=== PATIENT | male | born 1975 | race Two or more races ===

== ENCOUNTER 2020-03-15 19:09 | Inpatient (IN) | payer MEDICARE, OTHER ==
[~2020-03-15] VITALS: Ht 167.6 cm; Wt 47.0 kg
[2020-03-15] MEDS ORDERED: SODIUM CHLORIDE 0.9% 1,000 ML IV ONE (21:30)
[2020-03-15 22:21] LABS: Urine Bacteria MANY /hpf (None Seen); Urine Blood 2+ /uL (Negative); Urine Mucus FEW (None Seen); Urine WBC 164 /hpf (0 - 3)
[2020-03-15 22:27] LABS: Partial Thromboplastin Time 29.9 sec (23.64-32.05)
[2020-03-15 22:30] LABS: Albumin 1.9 g/dL (3.4-5.0); Calcium 7.3 mg/dL (8.5-10.1); Potassium 3.8 mmol/L (3.5-5.1)
[2020-03-15 22:33] LABS: Bilirubin, Total 0.4 mg/dL (0.2-1.0); Total Protein 5.9 g/dL (6.4-8.2)
[2020-03-15 22:34] LABS: Hemoglobin 9.5 g/dL (13.5-17.5)
[2020-03-15 22:35] LABS: Hematocrit 28.5 % (41.0-53.0); Mean Corpuscular Hemoglobin 26.5 pg (28.0-32.0); Mean Corpuscular Hgb Conc. 33.3 g/dL (32.0-36.0); Mean Corpuscular Volume 79.7 fL (80.0-100.0); Platelet Count (auto) 78 10^3/uL (140-450); Red Blood Cells 3.57 10^6/uL (4.5-5.90); Red Cell Distribution Width 17.7 % (11.8-14.3); White Blood Cell 3.6 10^3/uL (4.4-10.8)
[2020-03-15 22:44] LABS: Basophils % (manual) 0 (0.0-2.0); Blast Cells 0; Metamyelocytes % 0; Myelocytes % 0; Promyelocytes % 0; Reactive Lymphocytes 0
[2020-03-16 00:03] LABS: Band Neutrophils % (manual) 4; Eosinophils % (manual) 2 (0-7); Lymphocytes % (manual) 8 (10.0-50.0); Monocytes % (manual) 2 (0-12)
[2020-03-16] MEDS ORDERED: PIPERACILLIN-TAZOB 3.375GM 100 ML IV ONE (00:30)
[2020-03-16] MEDS ORDERED: SODIUM CHLORIDE 0.9% 1,000 ML IV SCH (00:38)
[2020-03-16] MEDS ORDERED: NITROGLYCERIN 0.4 MG SL TAB SL PRN (00:45)
[2020-03-16] MEDS ORDERED: ONDANSETRON HCL 4 MG/2 ML VIAL IV PRN (00:45)
[2020-03-16] MEDS ORDERED: ACETAMINOPHEN 325 MG TAB PO PRN (00:45)
[2020-03-16] MEDS ORDERED: MORPHINE SULF INJ 2 MG/ML SYRINGE 1ML IV PRN (00:45)
[2020-03-16 01:12] LABS: CRP High Sensitivity 4.15 mg/dL (< 0.3)
--- NOTE | 2020-03-16 03:10 | NUR ---
Telemetry admit from [facility] admitted to Telemetry unit no SBAR received. Patient oriented to LAURA VELASQUEZ, RN primary RN, unit, room, bed, and unit policies regarding patient care and visiting hours. Patient now on continuous telemetry monitoring,tele box #12. Patient weighed by bedscale and encouraged to call if they need something. Lassiter intact and draining. Safety measures in place side rails up x2, bed in lowest position, and call light within reach. All questions and concerns addressed, patient verbalized understanding.
[2020-03-16 04:51] VITALS: BP 133/81
[2020-03-16 05:00] VITALS: BP 138/87
--- NOTE | 2020-03-16 05:47 | NUR ---
Arvind Hospitalist. Patient complaining of pain 07/05. Patient complaining of generalized body ache. Patient has no pain medication ordered. Patient requesting [place]. Awaiting orders. Will continue to monitor.
[2020-03-16] MEDS: NYSTATIN (MOUTH-THROAT) 500,000 UNITS/5 ML SUSP MT SCH ×4 (06:24→22:34)
[2020-03-16] MEDS ORDERED: PNEUMOCOCCAL VACC POLYS 25 MCG/0.5 ML VIAL IM ONE (07:15)
--- NOTE | 2020-03-16 07:30 | NUR ---
OOB TO CHAIR UNABLE TO GET PATIENT OOB TO CHAIR D/T PAIN, WEAKNESS, AND CACHEXIC STATUS. PATIENT TURNED AND POSITIONED FOR COMFORT. WILL CONTINUE TO MONITOR Addendum: 03/16/20 at 1149 by VA MARTINEZ RN RN Amended: Links added.
--- NOTE | 2020-03-16 07:30 | NUR ---
Opening Shift Note Assumed care of patient, awake, alert, and oriented. No S/S of distress/SOB. Patient c/o pain 6/10, generalized body pain. Patient does not have any pain meds ordered. Will notify MD. Bed in lowest/locked position, bed rails up x2, call light within reach. Instructed on POC and to call for assist PRN. Will continue to monitor for changes Q1hr and PRN.
--- NOTE | 2020-03-16 07:45 | NUR ---
BRIJESH COLEY MD RE: PATIENT PAIN MEDICATION. AWAITING RETURN CALL.
--- NOTE | 2020-03-16 08:20 | NUR ---
MD CALL RECEIVED CALL FROM DR ENRIQUEZ RE: PATIENT PAIN. PER DR ENRIQUEZ, PATIENT IS BEING SEEN BY DR BUENO.
--- NOTE | 2020-03-16 08:40 | NUR ---
BRIJESH COLEY MD RE: PATIENT PAIN MEDICATION. AWAITING RETURN CALL.
[2020-03-16 09:00] VITALS: BP 130/50
[2020-03-16] MEDS ORDERED: cefTRIAXone 1GM/50ML D5W 50 ML IV SCH (09:00)
[2020-03-16] MEDS: ASCORBIC ACID 1,000 MG TAB PO SCH (09:11)
[2020-03-16] MEDS: FAMOTIDINE 20 MG TAB PO SCH ×2 (09:12→22:34)
[2020-03-16] MEDS ORDERED: ZINC SULFATE 220mg CAP or TAB PO SCH (10:00)
[2020-03-16] MEDS ORDERED: CHOLECALCIFEROL (VITD3) 1,000IU=25mCg TAB PO SCH (10:00)
--- NOTE | 2020-03-16 10:45 | NUR ---
MD CALL RECEIVED CALL FROM DR BUENO RE: PATIENT PAIN. NEW ORDERS RECEIVED/ WILL CARRY OUT. WILL CONTINUE TO MONITOR
[2020-03-16] MEDS: HYDROcodone-ACET 5/325MG TAB PO PRN ×3 (11:00→20:50)
--- NOTE | 2020-03-16 11:00 | NUR ---
PAIN PATIENT C/O PAIN GENERALIZED BODY 04/04. WILL MEDICATE PER MD ORDERS
--- NOTE | 2020-03-16 11:21 | NUR ---
AIR MATTRESS: Specialty air mattress ordered at [facility],Reference # [id number]; ETA 03/16/20 @7509, Call [facility] if need to follow up at [phone] Addendum: 03/16/20 at 1122 by Sulema Soriano RN Amended: Links added.
--- NOTE | 2020-03-16 12:03 | NUR ---
OOB TO CHAIR UNABLE TO GET PATIENT OOB TO CHAIR D/T PAIN, WEAKNESS, AND CACHEXIC STATUS. PATIENT TURNED AND POSITIONED FOR COMFORT. WILL CONTINUE TO MONITOR Addendum: 03/16/20 at 1204 by VA MARTINEZ RN RN Amended: Links added.
[2020-03-16 13:00] VITALS: BP 123/82
--- NOTE | 2020-03-16 14:10 | NUR ---
REPORT REPORT GIVEN TO ANA PAULA STANFORD
--- NOTE | 2020-03-16 14:30 | NUR ---
BENTLEY EMPTIED 850 ML CLEAR YELLOW URINE FROM [facility] PRIOR TO TRANSFER
--- NOTE | 2020-03-16 14:40 | NUR ---
TRANSFER PATIENT TRANSFERRED FROM [facility] TO ROOM 231. NO S/S OF DISTRESS, SOB NOTED AT DEPARTURE
--- NOTE | 2020-03-16 15:01 | NUR ---
PATIENT TRANSFERRED TO FLOOR VIA WHEEL CHAIR,AND PLACED ON SPECIAL AIR MATRES. PT STARTED ON ABX AND VA GOSS REPORTS MRSA SWAB WAS SENT TO LAB. VITALS: T 98.2, BP 135/74, HR 93, 02 99 ON RA, RR 16.
[2020-03-16] MEDS: AZTREONAM 1GM INJ 1 GM in D5W 5% 50 ML IV SCH ×3 (15:55→23:52)
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
--- NOTE | 2020-03-16 16:15 | NUR ---
ss consult Per consult patient wants information on advanced directive. Patient has been provided with advanced directive. Addendum: 03/16/20 at 1618 by Zahraa Saeed Amended: Links added.
[2020-03-16 17:00] VITALS: BP 132/81
[2020-03-16] MEDS: Ensure Enlive Strawberry 8oz Bottle PO SCH (18:02)
--- NOTE | 2020-03-16 18:04 | NUR ---
Urine sent to lab for urine culture.
--- NOTE | 2020-03-16 19:20 | NUR ---
Opening Shift Note Assumed care of patient, awake and alert. No S/S of distress/SOB or pain. POC discussed and questions answered. Bed is locked in lowest position with side rails up x2 for safety. Call light is within reach and patient is encouraged to call for assistance as needed, will continue to monitor for changes Q1hr and PRN.
[2020-03-16 22:00] VITALS: BP 134/76
--- NOTE | 2020-03-16 22:10 | NUR ---
WOUND CARE CHANGED DRESSING ON SACRAL PER ORDERS.
[2020-03-16] MEDS: TEMAZEPAM 15 MG CAP PO PRN (22:22)
[2020-03-16] MEDS ORDERED: AZTREONAM 1 GM INJ VIAL ONE (23:35)
[2020-03-17 04:53] VITALS: BP 139/92
[2020-03-17] MEDS: NYSTATIN (MOUTH-THROAT) 500,000 UNITS/5 ML SUSP MT SCH ×4 (05:48→22:03)
[2020-03-17] MEDS: HYDROcodone-ACET 5/325MG TAB PO PRN ×4 (05:48→20:51)
[2020-03-17 06:23] LABS: Hematocrit 33.4 % (41.0-53.0); Hemoglobin 10.3 g/dL (13.5-17.5); Mean Corpuscular Hemoglobin 26.7 pg (28.0-32.0); Mean Corpuscular Hgb Conc. 30.7 g/dL (32.0-36.0); Mean Corpuscular Volume 86.7 fL (80.0-100.0); Platelet Count (auto) 74 10^3/uL (140-450); Red Blood Cells 3.85 10^6/uL (4.5-5.90); Red Cell Distribution Width 18.3 % (11.8-14.3); White Blood Cell 2.5 10^3/uL (4.4-10.8)
--- NOTE | 2020-03-17 06:23 | NUR ---
BLOOD CULTURE PATIENT HAS POSITIVE BLOOD CULTURE , GRAM POSITIVE COCCI IN CLUSTERS. HOSPITALIST PAGED.
[2020-03-17 06:25] LABS: Basophils % (manual) 0 (0.0-2.0); Blast Cells 0; Metamyelocytes % 0; Promyelocytes % 0; Reactive Lymphocytes 0
[2020-03-17 06:27] LABS: Albumin 1.7 g/dL (3.4-5.0); Calcium 7.2 mg/dL (8.5-10.1); Potassium 3.8 mmol/L (3.5-5.1)
[2020-03-17 06:31] LABS: BUN/Creatinine Ratio 32.8; Bilirubin, Total 0.3 mg/dL (0.2-1.0); Total Protein 5.6 g/dL (6.4-8.2)
[2020-03-17] MEDS: AZTREONAM 1GM INJ 1 GM in D5W 5% 50 ML IV SCH ×3 (06:46→22:03)
--- NOTE | 2020-03-17 07:30 | NUR ---
RECEIVED REPORT FROM NIGHT NURSE. PATIENT SLEEPING IN BED. BREATHING EVEN AND UNLABORED. BED IN LOWEST POSITION, SIDE RAILS UP X2, BRAKE ENGAGED. CALL LIGHT IN REACH. WILL CONTINUE TO MONITOR Q 1 HR AND PRN.
[2020-03-17 07:42] LABS: Band Neutrophils % (manual) 3; Eosinophils % (manual) 2 (0-7); Lymphocytes % (manual) 14 (10.0-50.0); Myelocytes % 3
[2020-03-17 07:43] LABS: Monocytes % (manual) 11 (0-12)
[2020-03-17 08:00] VITALS: BP 142/76
[2020-03-17] MEDS: Ensure Enlive Strawberry 8oz Bottle PO SCH ×4 (08:00→18:03)
[2020-03-17] MEDS: FAMOTIDINE 20 MG TAB PO SCH ×2 (10:30→22:04)
[2020-03-17] MEDS: ASCORBIC ACID 1,000 MG TAB PO SCH (10:30)
[2020-03-17 12:00] VITALS: BP 110/65
[2020-03-17] MEDS: CLINDAMYCIN 600MG IV 50 ML IV SCH ×2 (12:27→20:42)
--- NOTE | 2020-03-17 13:29 | NUR ---
Nutrition Assessment Notes Please refer to link for full assessment notes. Est Energy needs: 2714-9573 kcals (30-40 kcal/kgIBW) d/t pt underweight Est Protein needs: 77-97 gms/day (1.2-1.5 gm/kgIBW) d/t pt wounds, underweight Will continue to monitor and reassess prn. Addendum: 03/17/20 at [address] Amended: Links added.
[2020-03-17 16:43] VITALS: BP 125/77
--- NOTE | 2020-03-17 18:23 | NUR ---
IV INSERTION IV INSERTED USING ASEPTIC TECHNIQUE. 22G TO THE LEFT WRIST. PATENT AND FLUSHING. GOOD BLOOD RETURN. PATIENT TOLERATED IT WELL.
--- NOTE | 2020-03-17 18:24 | NUR ---
IV REMOVAL IV REMOVED TO LEFT HAND. CATHETER TIP INTACT, PRESSURE DRESSING APPLIED.
--- NOTE | 2020-03-17 19:30 | NUR ---
Opening Shift Note Assumed care of patient, awake and alert. No S/S of distress/SOB or pain. Instructed on POC and to call for assist PRN. Bed in lowest locked position, call light within reach, side rails up x2, fall precautions in place. Will continue to monitor for changes Q1hr and PRN.
[2020-03-17 22:00] VITALS: BP 127/79
[2020-03-17] MEDS: TEMAZEPAM 15 MG CAP PO PRN (22:04)
[2020-03-18] MEDS: HYDROcodone-ACET 5/325MG TAB PO PRN ×2 (02:52→17:30)
--- NOTE | 2020-03-18 04:45 | NUR ---
IV insertion IV access obtained, via clean sterile technique by inserting 22 gauge catheter at right upper arm after 2 attempt(s). IV secured properly. No trauma to site. Patient tolerated well. NOTE: Previous IV accidently pulled out. Catheter fully intact, pressure dressing was applied.
[2020-03-18] MEDS: CLINDAMYCIN 600MG IV 50 ML IV SCH ×3 (04:59→21:09)
[2020-03-18 05:33] VITALS: BP 128/77
--- NOTE | 2020-03-18 06:00 | NUR ---
Temperature At 100.1. Cooling measures initiated. Will continue to monitor. Addendum: 03/18/20 at 0737 by RADHA COLÓN OCA, RN Temp recheck 99.4.
[2020-03-18] MEDS: NYSTATIN (MOUTH-THROAT) 500,000 UNITS/5 ML SUSP MT SCH ×4 (06:37→21:09)
[2020-03-18] MEDS: AZTREONAM 1GM INJ 1 GM in D5W 5% 50 ML IV SCH (06:37)
--- NOTE | 2020-03-18 08:05 | NUR ---
OPENING SHIFT NOTE Assumed care of patient. PT is awake and alert. No S/S of distress/SOB or pain. Instructed on POC and to call for assist PRN. Bed in lowest locked position, call light within reach, side rails up x2, fall precautions in place. Will continue to monitor for changes Q1hr and PRN.
[2020-03-18 08:48] VITALS: BP 133/75
[2020-03-18] MEDS: Ensure Enlive Strawberry 8oz Bottle PO SCH ×3 (09:30→17:30)
[2020-03-18] MEDS: levoFLOXacin 500MG 100 ML IV SCH (09:30)
[2020-03-18] MEDS: MORPHINE SULF INJ 2 MG/ML SYRINGE 1ML IV PRN ×3 (09:31→21:10)
[2020-03-18] MEDS: FAMOTIDINE 20 MG TAB PO SCH ×2 (09:31→21:10)
[2020-03-18] MEDS: ASCORBIC ACID 1,000 MG TAB PO SCH (09:31)
[2020-03-18 13:00] VITALS: BP 130/74
--- NOTE | 2020-03-18 15:15 | NUR ---
DAILY AND EOD WOUND CARE PERFORMED TO BACK AND SACRAL SITES, PER WOUND CARE INSTRUCTIONS. PT TOLERATED WELL.
[2020-03-18 17:00] VITALS: BP 101/59
--- NOTE | 2020-03-18 19:00 | NUR ---
OPENING NOTE- NOC SHIFT RECEIVED REPORT FROM DAY SHIFT NURSE WILL RN. PATIENT IS COMFORTABLE IN BED. NO S/SX OF DISTRESS OR SOB. WILL CONTINUE TO MONITOR Q1H AND PRN.
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
[2020-03-18 21:55] VITALS: BP 113/72
[2020-03-19] MEDS: MORPHINE SULF INJ 2 MG/ML SYRINGE 1ML IV PRN ×5 (02:06→18:19)
[2020-03-19] MEDS: NYSTATIN (MOUTH-THROAT) 500,000 UNITS/5 ML SUSP MT SCH ×4 (04:55→21:32)
[2020-03-19] MEDS: CLINDAMYCIN 600MG IV 50 ML IV SCH ×3 (04:55→21:32)
--- NOTE | 2020-03-19 04:59 | NUR ---
WOUND CARE TO SACRAL AREA PER MD ORDERS. PATIENT TOLERATED WELL.
[2020-03-19 05:34] VITALS: BP 115/71
--- NOTE | 2020-03-19 07:33 | NUR ---
CLOSING NOTE- NOC SHIFT ENDORSED PATIENT CARE TO DAY SHIFT NURSE SHOBHA GOSS. PATIENT IS COMFORTABLE IN BED. NO S/SX OF DISTRESS, SOB OR PAIN.
[2020-03-19 08:40] VITALS: BP 126/77
--- NOTE | 2020-03-19 08:56 | NUR ---
PT IS REFUSING TO EAT AND TO REPOSITION IN BED, PT IS EDUCATED ON THE IMPORTANCE OF TURNING EVERY 2 HOURS AND EAT BALANCE DIET TO PREVENT FURTHER DEVELOPMENT OF PRESSURE ULCER, PT STILL REFUSED.
[2020-03-19] MEDS: levoFLOXacin 500MG 100 ML IV SCH (09:29)
[2020-03-19] MEDS: ASCORBIC ACID 1,000 MG TAB PO SCH (09:29)
[2020-03-19] MEDS: FAMOTIDINE 20 MG TAB PO SCH ×2 (09:29→21:32)
[2020-03-19] MEDS: Ensure Enlive Strawberry 8oz Bottle PO SCH ×3 (09:30→18:19)
[2020-03-19 13:00] VITALS: BP 107/62
[2020-03-19 16:29] VITALS: BP 109/69
--- NOTE | 2020-03-19 17:24 | NUR ---
PAGED HOSPITALIST RE: PAIN MEDICATION
--- NOTE | 2020-03-19 17:26 | NUR ---
LUCERO CANTU CALLED MADE AWARE PT IS COMPLAINING HE IS ALLERGIC TO NORCO, RECEIVED ORDER TO CHANGE IT TO ULTRAM 50MG PO Q6HRS PRN FOR PAIN AND DC THE NORCO.
--- NOTE | 2020-03-19 18:02 | NUR ---
PT REFUSED ULTRAM FOR PAIN, PER PT ULTRAM DOESN'T WORK FOR HIM.
--- NOTE | 2020-03-19 19:00 | NUR ---
OPENING NOTE- NOC SHIFT PATIENT IS ALERT AND ORIENTED LAYING IN BED EYES CLOSED. BREATHS ARE EVEN AND UNLABORED. NO S/SX OF DISTRESS, SOB OR PAIN. WILL CONTINUE TO MONITOR Q1H AND PRN.
--- NOTE | 2020-03-19 19:45 | NUR ---
MOTHER WES CALLED FOR PATIENT STATUS UPDATE. UPDATED WES WITH POC AFTER CONFIRMING ACCOUNT PASSWORD.
[2020-03-19] MEDS: TEMAZEPAM 15 MG CAP PO PRN (21:33)
[2020-03-19 22:00] VITALS: BP 117/68
--- NOTE | 2020-03-19 22:00 | NUR ---
POOR DINNER INTAKE 25% PATIENT HAS SNACKS AT BEDSIDE PROVIDED BY HIS MOTHER, PATIENT HAS CONSUMED COOKIES, CHOCOLATES AND PASTRIES.
--- NOTE | 2020-03-20 02:10 | NUR ---
PATIENT FOUND TRYING TO GET OUT OF BED. ASSISTED PATIENT BACK INTO BED. PATIENT STATES THAT HE WAS TRYING TO STAND UP. PATIENT IS COMFORTABLE IN BED. LOCKED AT LOWEST POSITION, BED RAILS UP X2, BEDSIDE TABLE WITHIN REACH, CALL LIGHT WITHIN REACH. PERSONAL BELONGINGS WITHIN REACH. INSTRUCTED PATIENT TO STAY IN BED; PATIENT VERBALIZED UNDERSTANDING.
[2020-03-20] MEDS: MORPHINE SULF INJ 2 MG/ML SYRINGE 1ML IV PRN ×6 (02:26→23:19)
[2020-03-20] MEDS: NYSTATIN (MOUTH-THROAT) 500,000 UNITS/5 ML SUSP MT SCH ×4 (05:17→22:24)
[2020-03-20] MEDS: CLINDAMYCIN 600MG IV 50 ML IV SCH (05:17)
[2020-03-20 05:35] VITALS: BP 109/62
[2020-03-20 07:49] LABS: Hemoglobin 8.5 g/dL (13.5-17.5); Red Cell Distribution Width 17.3 % (11.8-14.3)
[2020-03-20 07:53] LABS: Hematocrit 25.4 % (41.0-53.0); Mean Corpuscular Hemoglobin 26.7 pg (28.0-32.0); Mean Corpuscular Hgb Conc. 33.4 g/dL (32.0-36.0); Platelet Count (auto) 127 10^3/uL (140-450); Red Blood Cells 3.18 10^6/uL (4.5-5.90)
[2020-03-20 08:04] LABS: White Blood Cell 1.9 10^3/uL (4.4-10.8)
[2020-03-20 08:05] LABS: Basophils % (manual) 0 (0.0-2.0); Blast Cells 0; Promyelocytes % 0
[2020-03-20 08:10] LABS: BUN/Creatinine Ratio 28.6; Calcium 7.3 mg/dL (8.5-10.1); Potassium 3.8 mmol/L (3.5-5.1)
[2020-03-20 08:22] LABS: Band Neutrophils % (manual) 2; Eosinophils % (manual) 1 (0-7); Lymphocytes % (manual) 23 (10.0-50.0); Metamyelocytes % 1; Monocytes % (manual) 11 (0-12); Myelocytes % 1; Reactive Lymphocytes 1
[2020-03-20 09:13] VITALS: BP 110/71
--- NOTE | 2020-03-20 09:45 | NUR ---
Dr. Betancourt made aware of WBC 1.9, reverse isolation placed.
[2020-03-20] MEDS: Ensure Enlive Strawberry 8oz Bottle PO SCH ×3 (10:33→18:12)
[2020-03-20] MEDS: levoFLOXacin 500MG 100 ML IV SCH (10:33)
[2020-03-20] MEDS: FAMOTIDINE 20 MG TAB PO SCH ×2 (10:34→22:24)
[2020-03-20] MEDS: ASCORBIC ACID 1,000 MG TAB PO SCH (10:34)
[2020-03-20] MEDS: traMADol HCL 50 MG TAB PO PRN ×2 (12:09→18:12)
[2020-03-20 12:41] VITALS: BP 106/75
[2020-03-20] MEDS ORDERED: FILGRASTIM (TBO) 300 MCG/0.5 ML SYRG SC ONE (12:45)
--- NOTE | 2020-03-20 12:46 | NUR ---
Nutrition Followup Notes Wt 47.6 kg Pt po intake is inadequate aeb multiple 50% po intake per RN doc. Pt is HIV pos and stopped taking meds per H/P. per H/P pt is emaciated and possible candidate for hospice. Est Energy needs: 2374-8100 kcals (30-40 kcal/kgIBW) d/t pt underweight Est Protein needs: 77-97 gms/day (1.2-1.5 gm/kgIBW) d/t pt wounds, underweight Will continue to monitor and reassess prn. Labs:Creat 0.56L, Alb 1.7L, Ca 7.3L BM: 1 03/20 per RN doc Skin: BS 14 mod risk, multiple pressure ulcers per RN WC for full details PES: 1) Increased nutrient needs r/t current/chronic medical condition aeb severe hypoalbuminemia, unhealing wounds, BMI of 16.9 kg/m2 2) Altered nutrition related lab values r/t pt with severe protein/calorie malnutrition aeb severe hypoalbuminemia, hyperchloremia, hypocalcemia Comments Will continue to closely monitor pertinent labs, PO intake and skin status prn. Will followup in 3-5 days 1) Continue to closely monitor pt PO intake to meet at least 75% of meals 2) Suggest Ensure High Protein 1 ctn TID 3) Continue current plan of care Expected Outcomes/Goals: Pt appetite to improve Pt to regain weight Pt labs to improve
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
[2020-03-20 14:12] LABS: Albumin 1.9 g/dL (3.4-5.0)
[2020-03-20 14:16] LABS: Pre Albumin 11.9 mg/dL (20.0-40.0)
--- NOTE | 2020-03-20 16:19 | NUR ---
I spoke with Norma in Admitting at [facility], they do not have plastic surgery available. I called [facility] [phone] and spoke with Jennifer in Admitting, she referred me to speak with warehouse engineer about transfer request. I left message for warehouse engineer Alyssa Siddiqui about the transfer request.
--- NOTE | 2020-03-20 16:26 | NUR ---
Faxed transfer request/clinical information to [facility] [phone].
--- NOTE | 2020-03-20 16:36 | NUR ---
I faxed transfer request/clinical information to [facility] and [facility].
[2020-03-20 17:00] VITALS: BP 107/67
--- NOTE | 2020-03-20 19:00 | NUR ---
OPENING NOTE- NOC SHIFT RECEIVED REPORT FROM DAY SHIFT NURSE LIBERTAD GOSS. PATIENT IS IN BED, BED IS LOCKED AT LOWEST POSITION, BED RAILS UP X2 AND HEAD OF BED IS UP >30 DEGREES. BEDSIDE TABLE WITHIN REACH, CALL LIGHT WITHIN REACH. PERSONAL BELONGINGS WITHIN REACH. DISCUSSED POC WITH PATIENT AND INSTRUCTED PATIENT TO CALL PRN; PATIENT VERBALIZED UNDERSTANDING. PATIENT IS ON SPECIALTY MATTRESS. FAMILY SISTER SYBIL RN AT BEDSIDE; UPDATED SYBIL ON PATIENT STATUS AND POC. GOOD FAMILY DYNAMICS NOTED. WILL CONTINUE TO MONITOR Q1H AND PRN.
[2020-03-20 20:00] VITALS: BP 109/62
[2020-03-20 22:00] VITALS: BP 109/62
[2020-03-20] MEDS: TEMAZEPAM 15 MG CAP PO PRN (22:24)
[2020-03-21 05:00] VITALS: BP 109/62
[2020-03-21] MEDS: NYSTATIN (MOUTH-THROAT) 500,000 UNITS/5 ML SUSP MT SCH ×4 (05:02→22:00)
[2020-03-21] MEDS: MORPHINE SULF INJ 2 MG/ML SYRINGE 1ML IV PRN ×5 (05:02→23:57)
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
[2020-03-21 09:00] VITALS: BP 110/67
[2020-03-21] MEDS: FAMOTIDINE 20 MG TAB PO SCH ×2 (09:01→22:00)
[2020-03-21] MEDS: levoFLOXacin 500MG 100 ML IV SCH (09:01)
[2020-03-21] MEDS ORDERED: FILGRASTIM (TBO) 300 MCG/0.5 ML SYRG SC SCH (10:00)
--- NOTE | 2020-03-21 10:09 | NUR ---
I received a message from [facility] letting me know that they do not have plastic surgery available. I called [facility] Transfer Center [phone] and spoke with Lupe, she said they do have plastic surgery available. I provided her with contact information for Dr. Betancourt-faxed requested clinical information.
--- NOTE | 2020-03-21 10:30 | NUR ---
TE RN PICC LINE NURSE AT BED SIDE WITH A MIDLINE AT LEFT UPPER ARM
--- NOTE | 2020-03-21 10:55 | NUR ---
PT TOLERATED MIDLINE WELL AT LEFT UPPER ARM
--- NOTE | 2020-03-21 11:00 | NUR ---
Midline Placement: Patient educated on need for midline placement. All risks and benefits explained and all questions and concerns addresses prior to procedure. 20g/8cm midline inserted via left brachial vein using Ultrasound. Sterile technique utilized. Blood return obtained from lumen and flushed easily with NS using proper technique. Midline secured with saline lock; biodisc and occlusive dressing applied. Primary RN notified. Midline lot #[id number]
[2020-03-21 11:22] LABS: Basophils # (auto) 0 10 ^3/uL (0-0.2); Eosinophils # (auto) 0.1 10 ^3/uL (0-0.8); Eosinophils % (auto) 0.6 % (0.0-7.0); Hematocrit 25.6 % (41.0-53.0); Lymphocytes # (auto) 0.8 10 ^3/uL (0.4-5.4); Mean Corpuscular Hemoglobin 26.5 pg (28.0-32.0); White Blood Cell 16.5 10^3/uL (4.4-10.8)
[2020-03-21 11:23] LABS: Basophils % (auto) 0.3 % (0.0-2.0); Hemoglobin 8.4 g/dL (13.5-17.5); Mean Corpuscular Hgb Conc. 32.6 g/dL (32.0-36.0); Mean Corpuscular Volume 81.3 fL (80.0-100.0); Monocytes # (auto) 2.9 10 ^3/uL (0-1.3); Monocytes % (auto) 17.7 % (0.0-12.0); Neutrophils # (auto) 12.7 10 ^3/uL (1.6-8.6); Neutrophils % (auto) 76.4 % (37.0-80.0); Platelet Count (auto) 122 10^3/uL (140-450); Red Blood Cells 3.15 10^6/uL (4.5-5.90); Red Cell Distribution Width 17.7 % (11.8-14.3)
--- NOTE | 2020-03-21 11:39 | NUR ---
PHYSICAL THERAPY LAURENCE AT BED SIDE ASSISTING PT TO GET OUT OF BED, PT START TO FEEL ACHING PAIN FROM THE PHYSICAL THERAPY HANDS IN ATTEMPT TO GET OUT OF BED, PT STATED NOT NOW PLEASE, I AM IN PAIN >
--- NOTE | 2020-03-21 11:39 | NUR ---
Figueroa catheter dc'd Order to discontinue figueroa catheter. Figueroa dc'd with clean technique following deflation of balloon. Patient tolerated well with no complaints of pain. Continue care.
--- NOTE | 2020-03-21 11:45 | NUR ---
HIGH WBC DR BUENO MADE AWARE OF THE WBC CRITICAL RESULTS
[2020-03-21] MEDS: Ensure Enlive Strawberry 8oz Bottle PO SCH ×3 (11:57→18:17)
[2020-03-21] MEDS ORDERED: ASCORBIC ACID 500 MG TAB PO ONE (12:45)
[2020-03-21 13:00] VITALS: BP 95/54
--- NOTE | 2020-03-21 13:30 | NUR ---
PHYSICAL THERAPY AT BED SIDE ASSISTING PT TO GET OUT TO BED TO CHAIR, CONTINUE WITH LEG EXERCISES
--- NOTE | 2020-03-21 16:00 | NUR ---
BM PT HAS FORMED BM, KEPT DRY AND CLEAN
--- NOTE | 2020-03-21 16:11 | NUR ---
I called [facility] and spoke with Kelvin [phone] regarding higher level of care need for this patient. I faxed him requested clinical information as well as contact information for Dr. Betancourt and the nurse's station.
--- NOTE | 2020-03-21 16:17 | NUR ---
I called [facility] Transfer Center and spoke with Monroe, they have no beds available at this time.
[2020-03-21 16:51] VITALS: BP 86/48
--- NOTE | 2020-03-21 18:00 | NUR ---
WOUND CARE A SECOND OPTIFOAM APPLIED AT THE SACRUM AREA, PT HAS BM
--- NOTE | 2020-03-21 18:14 | NUR ---
PT CONTINUE STABLE, CONTINUE MONITORING, KEPT CLEAN AND DRY AT ALL TIMES
[2020-03-21 20:00] VITALS: BP 103/58
--- NOTE | 2020-03-21 20:00 | NUR ---
Opening Shift Note Assumed care of patient, awake and alert. No S/S of distress/SOB or pain. Instructed on POC and to call for assist PRN, will continue to monitor for changes Q1hr and PRN.
--- NOTE | 2020-03-21 21:56 | NUR ---
PATIENT'S PAIN CURRENTLY AROUND A 5 PATIENT STATES THAT THE MORPHINE HELPS WITH THE PAIN BUT DOES NOT TAKE IT AWAY. PATIENT AWARE OF THIS AND IS FINE WITH CURRENT MEDICATIONS. PATIENT'S BP HAS BEEN TRENDING LOW. MUST RECHECK BP PRIOR TO ADMINISTRATION. PATIENT STATING THEY DO NOT NEED PAIN MEDICINE AT THIS TIME. PATIENT WILL WAIT FOR NEXT DOSE WHEN AVAILABLE.
[2020-03-21 22:00] VITALS: BP 116/56
[2020-03-21] MEDS: ASCORBIC ACID 500 MG TAB PO SCH (22:00)
[2020-03-22] VITALS (7 sets, daily range): BP systolic 102–119; BP diastolic 56–70
[2020-03-22] MEDS: DOCUSATE SOD 100 MG CAP PO PRN (00:38)
[2020-03-22] MEDS: MORPHINE SULF INJ 2 MG/ML SYRINGE 1ML IV PRN ×3 (04:03→12:59)
[2020-03-22 05:36] LABS: Basophils # (auto) 0.1 10 ^3/uL (0-0.2); Eosinophils # (auto) 0.1 10 ^3/uL (0-0.8); Eosinophils % (auto) 0.3 % (0.0-7.0); Hemoglobin 8.2 g/dL (13.5-17.5)
[2020-03-22] MEDS: NYSTATIN (MOUTH-THROAT) 500,000 UNITS/5 ML SUSP MT SCH ×4 (05:37→22:34)
[2020-03-22 05:39] LABS: Basophils % (auto) 0.6 % (0.0-2.0); Hematocrit 24.8 % (41.0-53.0); Lymphocytes # (auto) 0.7 10 ^3/uL (0.4-5.4); Lymphocytes % (auto) 3.4 % (10.0-50.0); Mean Corpuscular Hemoglobin 26.8 pg (28.0-32.0); Mean Corpuscular Volume 81.3 fL (80.0-100.0); Monocytes # (auto) 3.4 10 ^3/uL (0-1.3); Monocytes % (auto) 16.5 % (0.0-12.0); Neutrophils # (auto) 16.2 10 ^3/uL (1.6-8.6); Neutrophils % (auto) 79.2 % (37.0-80.0); Platelet Count (auto) 164 10^3/uL (140-450); Red Blood Cells 3.06 10^6/uL (4.5-5.90); Red Cell Distribution Width 17.6 % (11.8-14.3); White Blood Cell 20.5 10^3/uL (4.4-10.8)
--- NOTE | 2020-03-22 08:00 | NUR ---
ASSESSMENT NOTE PT IS ALERT ORIENTED X4, RESTING IN BED COMFORTABLY IN LOW SHELTON POSITION, PT IS CACHETIC, ABLE TO SELF REPOSITION AND VERBALIS HIS DEMANDS, OPTIFOAM NOTED ON THE SACRUM AREA, PT IS TENDER TO TOUCH, CONTINUE HANDLING PT GENTLY, ABLE TO SELF REPOSITION AND VERBALIS HIS DEMANDS, USE URINAL NEEDED, FALL RISK PRECAUTIONS, CALL LIGHT WITHIN REACH
--- NOTE | 2020-03-22 08:30 | NUR ---
BREAKFAST PT ASSISTED TO GET OUT OF BED TO CHAIR TO EAT BREAKFAST, TOLERATED WELL
[2020-03-22] MEDS: levoFLOXacin 500 MG TAB PO SCH (09:14)
[2020-03-22] MEDS: FAMOTIDINE 20 MG TAB PO SCH ×2 (09:14→22:34)
[2020-03-22] MEDS: ASCORBIC ACID 500 MG TAB PO SCH ×2 (09:15→22:35)
--- NOTE | 2020-03-22 09:30 | NUR ---
Pt requested PT tx later. Addendum: 03/22/20 at 1515 by Peter Noriega CATERERS HELPER Amended: Links added.
--- NOTE | 2020-03-22 09:30 | NUR ---
PHYSICAL THERAPY ATBED SIDE ASSISTING PT TO GO BACK TO BED
--- NOTE | 2020-03-22 09:44 | NUR ---
I called [facility] Transfer Center [phone] and spoke with Amber-she said no beds available right now but she will call me back later with an update.
--- NOTE | 2020-03-22 09:56 | NUR ---
I called [facility] [phone] and spoke with Oswaldo, he said they can not accommodate patient at this time.
--- NOTE | 2020-03-22 10:16 | NUR ---
I called [facility] Transfer Center [phone] and spoke with Gabino, provided him with contact information for Dr. Betancourt and the nurse's station-faxed requested clinical information.
--- NOTE | 2020-03-22 10:50 | NUR ---
Pt refused PT tx for the AM. Addendum: 03/22/20 at 1517 by Peter Noriega REFERENCE ARCHIVIST Amended: Links added.
[2020-03-22] MEDS: Ensure Enlive Strawberry 8oz Bottle PO SCH ×3 (12:22→18:17)
--- NOTE | 2020-03-22 13:32 | NUR ---
I received a call from Gabino at the [facility] transfer center-he said his plastic surgeon is declining the transfer request.
--- NOTE | 2020-03-22 13:50 | NUR ---
Pt refused PT tx. Addendum: 03/22/20 at 1519 by Peter Noriega PIECE DYER Amended: Links added.
--- NOTE | 2020-03-22 14:00 | NUR ---
PATIENT'S MOM DROP OFF FOOD FOR PT, GIVEN TO PT BY HIS NURSE AID
--- NOTE | 2020-03-22 14:30 | NUR ---
PT IS FORGETFUL, PT CALLED FOR PAIN MEDICATION, REMINDED HIM THAT I DID GIVE IT TO HIM AT 1 PM
--- NOTE | 2020-03-22 15:17 | NUR ---
PAIN MEDICATIONS PT IS REQUESTING PAIN MEDICATIONS, MADE AWARE THAT ITS NOT DUE, PAGE DR BUENO
--- NOTE | 2020-03-22 15:28 | NUR ---
DR BUENO CALLED,NEW ORDERS OF DILAUDID OBTAIN
[2020-03-22] MEDS: HYDROmorphone HCL 2 MG/ML VL IV PRN ×2 (16:03→20:10)
--- NOTE | 2020-03-22 18:17 | NUR ---
PT IS EATING DINNER IN BED, FEELING MUCH BETTER COMPARING YESTERDAY, ABLE TO SELF TURN HIM SELF IN BED AT ALL TIMES, PT CONTINUE FORGETFUL OCCASIONALLY
--- NOTE | 2020-03-22 18:20 | NUR ---
WOUND CARE OLD DRESSING REMOVED FROM THE SACRUM AREA, SKIN HEELING NOTED AT WOUND BED BORDER, CLEANSE WELL WITH BETADINE,OPTIFOAM APPLIED, PT TOLERATED WELL
--- NOTE | 2020-03-22 19:05 | NUR ---
OPENING SHIFT NOTE: ASSUMED CARE OF PATIENT. PATIENT IS AWAKE, ALERT AND ORIENTED X 4 WITH PERIODS OF FORGETFULNESS. NO S/S OF SOB OR DISTRESS, PATIENT COMPLAINS OF PAIN 8/10, WILL MEDICATE FOR PAIN. BED IS IN LOWEST, LOCKED POSITION, TWO SIDE RAILS RAISED, CALL KRUGER WITHIN REACH, AND BED ALARM ACTIVATED FOR SAFETY. INSTRUCTED ON POC AND ENCOURAGED TO USE CALL LIGHT FOR ASSISTANCE, ALL QUESTIONS AND CONCERNS ANSWERED AT THIS TIME, PATIENT VERBALIZES UNDERSTANDING. WILL CONTINUE TO MONITOR Q1 HR AND PRN.
--- NOTE | 2020-03-22 23:00 | NUR ---
PATIENT REQUESTS SOMETHING TO HELP HIM SLEEP, STATING, "I AM SO AFRAID AND NERVOUS ALL THE TIME I CAN'T FALL ASLEEP." REASSURED PATIENT OF SAFETY AND ENCOURAGED TO USE CALL LIGHT. WILL MEDICATE FOR SLEEP PER EMAR AND CONTINUE TO MONITOR.
[2020-03-22] MEDS: TEMAZEPAM 15 MG CAP PO PRN (23:09)
[2020-03-23] MEDS: HYDROmorphone HCL 2 MG/ML VL IV PRN ×6 (00:22→21:10)
[2020-03-23 05:01] VITALS: BP 115/70
[2020-03-23] MEDS: NYSTATIN (MOUTH-THROAT) 500,000 UNITS/5 ML SUSP MT SCH (05:54)
--- NOTE | 2020-03-23 08:00 | NUR ---
Opening Shift Note Assumed care of patient, awake and alert. No S/S of distress/SOB, complaints of 8/10 generalized pain. Will medicate with prn pain medication. Instructed on POC and to call for assist PRN, will continue to monitor for changes Q1hr and PRN.
[2020-03-23 08:04] LABS: White Blood Cell 8.2 10^3/uL (4.4-10.8)
[2020-03-23 08:06] LABS: Hematocrit 24.9 % (41.0-53.0); Hemoglobin 8.1 g/dL (13.5-17.5); Mean Corpuscular Hemoglobin 26.9 pg (28.0-32.0); Mean Corpuscular Hgb Conc. 32.7 g/dL (32.0-36.0); Mean Corpuscular Volume 82.4 fL (80.0-100.0); Platelet Count (auto) 160 10^3/uL (140-450); Red Blood Cells 3.02 10^6/uL (4.5-5.90)
[2020-03-23 08:15] LABS: Basophils % (manual) 0 (0.0-2.0); Blast Cells 0; Metamyelocytes % 0; Myelocytes % 0; Promyelocytes % 0; Reactive Lymphocytes 0
--- NOTE | 2020-03-23 08:55 | NUR ---
Pt requested PT tx "lNot now,later". Addendum: 03/23/20 at 1539 by Peter Noriega FIELD SUPERVISOR Amended: Links added.
[2020-03-23 09:08] LABS: Band Neutrophils % (manual) 9; Eosinophils % (manual) 1 (0-7); Lymphocytes % (manual) 7 (10.0-50.0); Monocytes % (manual) 2 (0-12)
[2020-03-23] MEDS: Ensure Enlive Strawberry 8oz Bottle PO SCH (09:22)
[2020-03-23] MEDS: ASCORBIC ACID 500 MG TAB PO SCH ×2 (10:00→21:10)
[2020-03-23] MEDS: levoFLOXacin 500 MG TAB PO SCH (10:00)
[2020-03-23] MEDS: FAMOTIDINE 20 MG TAB PO SCH ×2 (10:00→21:10)
[2020-03-23] MEDS ORDERED: ZOLPIDEM TARTRATE 5 MG TAB PO PRN (10:00)
--- NOTE | 2020-03-23 10:15 | NUR ---
Pt requested PT tx "Not now, later". Addendum: 03/23/20 at 1539 by Peter Noriega PIERCER Amended: Links added.
--- NOTE | 2020-03-23 10:50 | NUR ---
Pt refused PT tx. Addendum: 03/23/20 at 1539 by Peter Noriega SEAM STAY STITCHER Amended: Links added.
--- NOTE | 2020-03-23 11:01 | NUR ---
Nutrition Followup Notes Wt 47.0 kg Pt po intake improved, is still inadequate aeb 70% po intake 03/22 per RN doc. Pt is HIV pos and stopped taking meds per H/P. per H/P pt is emaciated and possible candidate for hospice. Est Energy needs: 6844-4402 kcals (30-40 kcal/kgIBW) d/t pt underweight Est Protein needs: 77-97 gms/day (1.2-1.5 gm/kgIBW) d/t pt wounds, underweight Will continue to monitor and reassess prn. Labs: Creat 0.56L, Alb 1.9L, Ca 7.3L BM: 1 03/22 per RN doc Skin: BS 15 mod risk, multiple pressure ulcers per RN WC for full details PES: 1) Increased nutrient needs r/t current/chronic medical condition aeb severe hypoalbuminemia, unhealing wounds, BMI of 16.9 kg/m2 2) Altered nutrition related lab values r/t pt with severe protein/calorie malnutrition aeb severe hypoalbuminemia, hyperchloremia, hypocalcemia Comments Will continue to closely monitor pertinent labs, PO intake and skin status prn. Will followup in 3-5 days 1) Continue to closely monitor pt PO intake to meet at least 75% of meals 2) Suggest Ensure High Protein 1 ctn TID 3) Continue current plan of care Expected Outcomes/Goals: Pt to consume >75% of po intake or pt to consume supplements Pt to regain weight Pt labs to improve
[2020-03-23] MEDS ORDERED: SULFAMETHOX W/TRIMETH(800/160MG) DS TAB PO ONE (11:15)
[2020-03-23 12:00] VITALS: BP 118/72
[2020-03-23] MEDS: Ensure HIGH Protein Chocolate 8oz Bottle PO SCH ×2 (12:00→18:05)
--- NOTE | 2020-03-23 14:02 | NUR ---
I called [facility] [phone] and spoke with Trevor to check on bed availability, he said no beds available at this time. I confirmed that he has contact information for Dr. Betancourt. I faxed transfer request to [facility] along with face sheet.
--- NOTE | 2020-03-23 16:40 | NUR ---
Still awaiting transfer to higher level of care. Got accepted to [facility] but no bed available yet.
--- NOTE | 2020-03-23 16:48 | NUR ---
I placed [facility] ([phone]) on will call pending transfer to [facility]-faxed Medicare PCS form to [facility]. I spoke with Dr. Betancourt and made her aware that they might be calling her later this evening when a bed becomes available.
[2020-03-23 17:00] VITALS: BP 106/80
--- NOTE | 2020-03-23 19:30 | NUR ---
Opening Shift Note Assumed care of patient, awake and alert. No S/S of distress/SOB, complaints of 8/10 generalized pain. Patient made aware ordered PRN Dilaudid not yet due, will medicate as ordered (see emar). Patient verbalized understanding. Bed in lowest locked position, side rails up x2, call light within reach. Patient resting on specialty mattress, tolerating well. Instructed on POC and to call for assist PRN, will continue to monitor for changes Q1hr and PRN.
[2020-03-23 22:08] VITALS: BP 108/62
[2020-03-24 05:07] VITALS: BP 101/62
[2020-03-24] MEDS: HYDROmorphone HCL 2 MG/ML VL IV PRN ×5 (05:44→23:32)
[2020-03-24 06:34] LABS: Hemoglobin 8.8 g/dL (13.5-17.5); White Blood Cell 3.9 10^3/uL (4.4-10.8)
[2020-03-24 06:36] LABS: Hematocrit 26.8 % (41.0-53.0); Mean Corpuscular Hemoglobin 26.7 pg (28.0-32.0); Mean Corpuscular Hgb Conc. 32.8 g/dL (32.0-36.0); Mean Corpuscular Volume 81.3 fL (80.0-100.0); Platelet Count (auto) 179 10^3/uL (140-450); Red Cell Distribution Width 17.5 % (11.8-14.3)
[2020-03-24 06:44] LABS: Basophils % (manual) 0 (0.0-2.0); Blast Cells 0; Promyelocytes % 0; Reactive Lymphocytes 0
--- NOTE | 2020-03-24 06:55 | NUR ---
Closing Note Patient lying in bed, awake and alert. Bed in lowest locked position, side rails up x2, call light within reach. No s/s of distress. Will endorse care to dayshift RN.
[2020-03-24 07:31] LABS: Band Neutrophils % (manual) 9; Eosinophils % (manual) 3 (0-7); Lymphocytes % (manual) 13 (10.0-50.0); Metamyelocytes % 1; Monocytes % (manual) 10 (0-12); Myelocytes % 1
--- NOTE | 2020-03-24 07:57 | NUR ---
RECEIVED REPORT AND ASSUMED CARE OF PT. A/OX4. DENIED S/S ACUTE DISTRESS. UPDATE PT WITH POC. BED AT LOWEST POSITION. CALL LIGHT AND BELONGINGS WITHIN REACH. WILL CONT TO MONITOR
[2020-03-24] MEDS: Ensure HIGH Protein Chocolate 8oz Bottle PO SCH ×3 (08:06→18:11)
[2020-03-24 09:00] VITALS: BP 100/53
[2020-03-24] MEDS: ASCORBIC ACID 500 MG TAB PO SCH ×2 (09:55→22:15)
[2020-03-24] MEDS: levoFLOXacin 500 MG TAB PO SCH (09:55)
[2020-03-24] MEDS: FAMOTIDINE 20 MG TAB PO SCH ×2 (09:55→22:15)
--- NOTE | 2020-03-24 11:00 | NUR ---
WOUND CARE NOTE: IN TO SEE PATIENT FOR WOUND RE-EVALUATION. PATIENT HAS DISCHARGE/TRANSFER ORDER FOR [facility], AWAITING AVAILABLE BED. PATIENT CONTINUES TO REST ON SPECIALTY AIR MATTRESS, CURRENT LA SCORE IS 15. PATIENT CAN SELF TURN, BUT IS VERY WEAK. HE ALSO IS CACHECTIC, WEIGHING ONLY 47. KG. PATIENT CONTINUES TO HAVE MULTIPLE UNSTAGEABLE PRESSURE INJURIES TO SACRUM, SPINAL PROCESS, AND DTI EVOLVING TO BILATERAL HEELS. ALL WOUNDS PHOTOGRAPHED FOR REFERENCE AT THIS TIME. APPLIED APPROPRIATE DRESSINGS TO ALL WOUNDS AT THIS TIME. THERE IS NO CHANGE IN WOUND STATUS AT THIS TIME, WITH EXCEPTION OF LEFT HEEL. DTI HAS EVOLVED OPEN TO STAGE 3. ALL WOUND STATS CAN BE FOUND WITHIN WOUND ASSESSMENT INTERVENTION, LINKED TO THIS NOTE. RECOMMEND: CONTINUATION WITH ALL WOUND CARE ORDERS PREVIOUSLY PRESCRIBED BY . WOUND CARE TEAM WILL CONTINUE TO MONITOR. Addendum: 03/24/20 at 1817 by Sydni Mcdonald RN Amended: Links added.
[2020-03-24 13:00] VITALS: BP 107/63
[2020-03-24 17:00] VITALS: BP 105/71
--- NOTE | 2020-03-24 19:18 | NUR ---
PT RESTING IN BED. NO S/S ACUTE DISTRESS NOTED.ENDORSED CARE TO NIGHT NURSE.
[2020-03-24 22:06] VITALS: BP 105/64
--- NOTE | 2020-03-24 22:49 | NUR ---
SPOKE WITH EMELY FROM [facility], THERE ARE NO AVAILABLE BEDS AT THIS TIME, [facility] WILL FOLLOW UP IN THE MORNING 03-25-2020.
--- NOTE | 2020-03-25 02:15 | NUR ---
PATIENT REMOVED SACRAL WOUND DRESSING WHILE TURNING IN BED. NEW DRESSING APPLIED TO SACRAL WOUND PER ORDERS.
[2020-03-25] MEDS: HYDROmorphone HCL 2 MG/ML VL IV PRN ×5 (03:57→21:19)
[2020-03-25 05:19] VITALS: BP 106/63
[2020-03-25] MEDS: Ensure HIGH Protein Chocolate 8oz Bottle PO SCH ×3 (08:49→18:39)
[2020-03-25] MEDS: FAMOTIDINE 20 MG TAB PO SCH ×2 (08:49→21:18)
[2020-03-25] MEDS: levoFLOXacin 500 MG TAB PO SCH (08:49)
[2020-03-25] MEDS: ASCORBIC ACID 500 MG TAB PO SCH ×2 (08:49→21:19)
[2020-03-25 09:00] VITALS: BP 112/69
[2020-03-25 13:00] VITALS: BP 104/70
[2020-03-25 17:00] VITALS: BP 105/63
--- NOTE | 2020-03-25 19:15 | NUR ---
Opening Shift Note Assumed care of patient. Patient is awake, alert, and oriented X 4. No S/S of respiratory distress or pain. Bed is locked in lowest position with side rails up x 2 for safety. Call light is within reach. POC discussed and questions answered. Patient is encouraged to call for assistance as needed. Will continue to monitor for changes Q1hr and PRN.
--- NOTE | 2020-03-25 19:26 | NUR ---
PT RESTING IN BED. NO S/S ACUTE DISTRESS NOTED.ENDORSED CARE TO NIGHT NURSE.
[2020-03-25 20:00] VITALS: BP 95/63
[2020-03-25 22:00] VITALS: BP 95/63
[2020-03-26] MEDS: HYDROmorphone HCL 2 MG/ML VL IV PRN ×5 (02:29→22:48)
--- NOTE | 2020-03-26 02:38 | NUR ---
WOUND CARE TO SACRAL AREA AND LEFT HEEL PERFORMED AND DRESSING CHANGED ON BOTH SITES PER MD ORDERS. PATIENT TOLERATED WELL.
[2020-03-26 05:00] VITALS: BP 110/65
--- NOTE | 2020-03-26 07:18 | NUR ---
Closing Note Endorsed care to dayshift nurse. Patient lying in bed, awake and alert. No S/S of respiratory distress noted.
--- NOTE | 2020-03-26 07:25 | NUR ---
Opening shift note Assumed care of patient from NOC RN Latoya. Patient is AOX4, no s/s of distress noted. Bed is in lowest locked position, side rails up x3, and call light is within reach. Updated patient on plan of care and patient verbalized understanding. I will continue to monitor Q1hr and PRN.
[2020-03-26] MEDS: Ensure HIGH Protein Chocolate 8oz Bottle PO SCH ×3 (08:00→18:00)
--- NOTE | 2020-03-26 08:10 | NUR ---
I called [facility] and spoke with Juan Jose-no beds available at this time.
[2020-03-26 09:00] VITALS: BP 93/59
[2020-03-26] MEDS: SULFAMETHOX W/TRIMETH(800/160MG) DS TAB PO SCH (09:05)
[2020-03-26] MEDS: levoFLOXacin 500 MG TAB PO SCH (09:05)
[2020-03-26] MEDS: FAMOTIDINE 20 MG TAB PO SCH ×2 (09:06→22:00)
[2020-03-26] MEDS: ASCORBIC ACID 500 MG TAB PO SCH ×2 (09:06→22:00)
[2020-03-26] MEDS: traMADol HCL 50 MG TAB PO PRN (09:06)
--- NOTE | 2020-03-26 11:00 | NUR ---
Physician Rounding Dr. Betancourt at bedside, updated her on patient status. New orders received, I will follow through.
[2020-03-26] MEDS ORDERED: LORazepam 0.5 MG TAB PO PRN (11:15)
[2020-03-26 13:00] VITALS: BP 91/45
--- NOTE | 2020-03-26 13:52 | NUR ---
Nutrition Followup Notes Wt: 47.0 kg Pt`s with oral candidiasis and wounds. pt with no distress noted currently on regular neutropenic diet with ensure HP 1 carton tid with inadequate PO of < 50% x 4 per RN doc Est Energy needs: 1727-7950 kcals (30-40 kcal/kgIBW) d/t pt underweight. Est Protein needs: 77-97 gms/day (1.2-1.5 gm/kgIBW) d/t pt wounds, underweight. Will continue to monitor and reassess prn. Labs: CA 7.3 L, ALB 1.7 L, PREALB 11.9 L BM: 1 today per RN doc Skin: BS 14 mod risk, multiple pressure ulcers per RN WC for full details PES: 1) Increased nutrient needs r/t current/chronic medical condition aeb severe hypoalbuminemia, unhealing wounds, BMI of 16.9 kg/m2 2) Altered nutrition related lab values r/t pt with severe protein/calorie malnutrition aeb severe hypoalbuminemia, hyperchloremia, hypocalcemia Comments Will continue to closely monitor pertinent labs, PO intake and skin status prn. Will followup in 3-5 days 1) Continue to closely monitor pt PO intake to meet at least 75% of meals 2) Continue current plan of care.
--- NOTE | 2020-03-26 15:11 | NUR ---
Pt declined PT treatment today and states he would like to sleep. Pt agreeable to PT treatment tomorrow. Will attempt again.
[2020-03-26 17:00] VITALS: BP 94/59
--- NOTE | 2020-03-26 19:15 | NUR ---
End of Shift Note Endorsed care to NOC ANA PAULA Massey.No s/s of distress noted at this time.
[2020-03-26 22:00] VITALS: BP 96/61
[2020-03-27] MEDS: traMADol HCL 50 MG TAB PO PRN ×3 (01:21→18:27)
--- NOTE | 2020-03-27 02:50 | NUR ---
03/26/20201914 opening note Received report from ANA PAULA Gary. Pt in bed awake, a&o x4, respirations even and unlabored, no signs of distress noted. safety checks, bed at lowest position, call light within reach, bed alarm on, side rails up x2, floor clear of clutter.
[2020-03-27 05:00] VITALS: BP 102/61
[2020-03-27 06:18] LABS: Albumin 2.3 g/dL (3.4-5.0); BUN/Creatinine Ratio 42.1; Calcium 7.8 mg/dL (8.5-10.1); Potassium 3.9 mmol/L (3.5-5.1)
[2020-03-27 06:22] LABS: Hematocrit 23.5 % (41.0-53.0); Hemoglobin 7.8 g/dL (13.5-17.5); Mean Corpuscular Hemoglobin 26.9 pg (28.0-32.0); Mean Corpuscular Hgb Conc. 33.4 g/dL (32.0-36.0); Mean Corpuscular Volume 80.5 fL (80.0-100.0); Platelet Count (auto) 189 10^3/uL (140-450); Red Blood Cells 2.92 10^6/uL (4.5-5.90); Red Cell Distribution Width 17.7 % (11.8-14.3)
[2020-03-27 06:23] LABS: Pre Albumin 14.7 mg/dL (20.0-40.0)
[2020-03-27 07:03] LABS: Basophils % (manual) 0 (0.0-2.0); Blast Cells 0; Promyelocytes % 0; White Blood Cell 1.8 10^3/uL (4.4-10.8)
--- NOTE | 2020-03-27 07:14 | NUR ---
CRITICAL LAB VALUE INFORMED HOSPITALIST, DR. CLARK OF CRITICAL LAB VALUE WBC 1.8, NO NEW ORDERS RECEIVED.
--- NOTE | 2020-03-27 07:21 | NUR ---
REPORT GIVEN TO ANA PAULA OCONNELL. PT IN BED ALERT AND ORIENTED X4, RESPIRATIONS EVEN AND UNLABORED, NO SIGNS OF DISTRESS NOTED. SAFETY CHECKS, BED AT LOWEST POSITION, WHEELS LOCKED, CALL LIGHT WITHIN REACH, FLOOR CLEAR OF CLUTTER, BED ALARM ON.
[2020-03-27 07:33] LABS: Band Neutrophils % (manual) 3; Eosinophils % (manual) 5 (0-7); Lymphocytes % (manual) 38 (10.0-50.0); Metamyelocytes % 1; Monocytes % (manual) 8 (0-12); Myelocytes % 1; Reactive Lymphocytes 2
--- NOTE | 2020-03-27 07:40 | NUR ---
Opening shift note Assumed care of patient from NOC ANA PAULA Massey. Patient is AOX4, no s/s of distress noted. Bed is in lowest locked position, side rails up x3, and call light is within reach. Updated patient on plan of care and patient verbalized understanding. I will continue to monitor Q1hr and PRN.
--- NOTE | 2020-03-27 07:53 | NUR ---
Pain: Patient stated having generalized pain of 9/10. I will administer ordered PRN pain medication as prescribed.
[2020-03-27] MEDS: Ensure HIGH Protein Chocolate 8oz Bottle PO SCH ×3 (08:00→18:38)
[2020-03-27] MEDS: HYDROmorphone HCL 2 MG/ML VL IV PRN ×4 (08:02→21:30)
[2020-03-27 08:35] VITALS: BP 109/67
[2020-03-27] MEDS: FAMOTIDINE 20 MG TAB PO SCH ×2 (09:23→21:29)
[2020-03-27] MEDS: ASCORBIC ACID 500 MG TAB PO SCH ×2 (09:23→21:29)
--- NOTE | 2020-03-27 10:15 | NUR ---
Attempted PT treatment. Pt refused stating he is unable to get up at this time. Will attempt again later.
[2020-03-27 12:50] VITALS: BP 102/70
[2020-03-27 14:41] LABS: % Iron Saturation 12.6 % (20-55)
--- NOTE | 2020-03-27 14:53 | NUR ---
I spoke with Dr. Betancourt regarding the plan of care for this patient-she stated that she spoke with patient's sister who is agreeable for SNF placement-she will place order.
[2020-03-27 15:01] LABS: Ferritin 384.4 ng/mL (10-322)
[2020-03-27] MEDS ORDERED: FILGRASTIM (TBO) 300 MCG/0.5 ML SYRG SC ONE (15:15)
--- NOTE | 2020-03-27 16:00 | NUR ---
D/C Planning Per [facility] consult for [facility] wound care, [facility]. Faxed clinical information to [facility]. Pending on acceptance.
[2020-03-27 16:26] VITALS: BP 110/66
--- NOTE | 2020-03-27 17:10 | NUR ---
spoke with family Spoke with patients mother Kaitlin. Per kaitlin she would like Dr. Betancourt to call her about changes in the plan of care. Per Kaitlin she does not agree with the potential [place] [facility] facility Kaitlin Barakat stated "I would like to be consulted about a change in the plan of care, not my daughter." Kaitlin is requesting to talk to a psychologist social as well regarding placement.
[2020-03-27] MEDS: FERROUS SULFATE 325 MG TAB PO SCH (18:27)
--- NOTE | 2020-03-27 19:10 | NUR ---
End of shift note Endorsed care to RN Juan Jose. No signs and symptoms of distress noted.
[2020-03-27 22:09] VITALS: BP 106/74
--- NOTE | 2020-03-28 05:07 | NUR ---
Called [facility] to cancel transportation and updated hospitalist regarding patients refusal. Addendum: 03/29/20 at 0513 by LEONOR MONROY RN Wrong time
[2020-03-28 05:54] LABS: Mean Corpuscular Volume 82.7 fL (80.0-100.0)
[2020-03-28 05:59] VITALS: BP 112/50
[2020-03-28 06:04] LABS: Hematocrit 28.3 % (41.0-53.0); Hemoglobin 9.1 g/dL (13.5-17.5); Mean Corpuscular Hemoglobin 26.5 pg (28.0-32.0); Mean Corpuscular Hgb Conc. 32.1 g/dL (32.0-36.0); Platelet Count (auto) 227 10^3/uL (140-450); Red Blood Cells 3.43 10^6/uL (4.5-5.90); Red Cell Distribution Width 17.8 % (11.8-14.3); White Blood Cell 15.1 10^3/uL (4.4-10.8)
[2020-03-28 06:48] LABS: Basophils % (manual) 0 (0.0-2.0); Blast Cells 0; Metamyelocytes % 0; Myelocytes % 0; Promyelocytes % 0
[2020-03-28] MEDS: Ensure HIGH Protein Chocolate 8oz Bottle PO SCH ×3 (08:00→18:17)
--- NOTE | 2020-03-28 08:00 | NUR ---
ASSESSMENT NOTE PATIENT IS ALERT ORIENTED X4, RESTING IN AIR MATTRESS BED, ABLE TO SELF REPOSITION AND VERBALIS HIS DEMANDS, PT CONTINUE TO HAVE A PRESSURE ULCER AT LOW BACK, MULTIPLE SCABS NOTED AT THE MID BACK, PT REPOSITIONING HIM SELF FROM SIDE TO SIDE, PT IS VERY DEMANDING, EMOTIONAL SUPPORT PROVIDED TO PT AT ALL TIMES CONTINUE ON PAIN MEDICATIONS AT ALL TIMES, FALL RISK PRECAUTIONS, CALL LIGHT WITHIN REACH
[2020-03-28 08:17] LABS: Band Neutrophils % (manual) 21; Eosinophils % (manual) 1 (0-7); Lymphocytes % (manual) 3 (10.0-50.0); Monocytes % (manual) 7 (0-12); Reactive Lymphocytes 2
[2020-03-28] MEDS: FERROUS SULFATE 325 MG TAB PO SCH ×2 (08:37→18:17)
[2020-03-28 09:00] VITALS: BP 112/64
[2020-03-28] MEDS: FAMOTIDINE 20 MG TAB PO SCH ×2 (09:46→22:51)
[2020-03-28] MEDS: ASCORBIC ACID 500 MG TAB PO SCH ×2 (09:46→22:51)
[2020-03-28] MEDS: SULFAMETHOX W/TRIMETH(800/160MG) DS TAB PO SCH (09:46)
--- NOTE | 2020-03-28 10:00 | NUR ---
PT OCCASIONAL CRYING OVER HIS BOY FRIEND PASSING AWAY RECENTLY, DR BUENO MADE AWARE, PT IN NEED FOR HELP
[2020-03-28] MEDS: HYDROmorphone HCL 2 MG/ML VL IV PRN ×3 (10:01→22:52)
--- NOTE | 2020-03-28 10:30 | NUR ---
DR BUENO OVER THE PHONE WITH PATIENT'S MOM, DISCUSSING THE PLAN OF CARE, PT NEED REHAB TO GET MORE STRONGER, REQUESTED TO HAVE HER SON TO GO TO SNF AROUND THE AREA HERE, DR BUENO PLANING TO DISCUSSING WITH SOILED LINEN DISTRIBUTOR
[2020-03-28] MEDS ORDERED: CITALOPRAM HYDROBR 20 MG TAB PO ONE (10:45)
--- NOTE | 2020-03-28 10:55 | NUR ---
PSYCH EVAL ORDER PLACED IN PC
--- NOTE | 2020-03-28 11:00 | NUR ---
WOUND CARE OLD OPTIFOAM REMOVED, A LARGE SEPARATION THE LOWER HALF OF THE WOUND SCAB NOTED, CLEANSE WITH BETADINE, NEW OPTIFOAM APPLIED, PT TOLERATED WELL
--- NOTE | 2020-03-28 11:26 | NUR ---
THE SYCHIATIC EVALUATION SESSION INTIATED VIA VIDEO CAMERA INSIDE PATIENT'S ROOM
[2020-03-28 13:00] VITALS: BP 96/55
--- NOTE | 2020-03-28 16:45 | NUR ---
BED SIDE COMMODE PT REQUESTED TO USE THE BSC, WAS RESISTING FOR ME TO ASSIST HIM TO GET OUT OF BED STATED I CAN DO THIS, PT MADE AWARE THAT I WILL ASSIST HIM BECAUSE THE AIR MATTRESS IN HIS WAY, ASSISTED PT, STAY OUT BY THE DOOR
[2020-03-28 17:00] VITALS: BP 100/63
--- NOTE | 2020-03-28 17:52 | NUR ---
PER [facility] PT WILL BE TRANSFER TO [facility] , BED [address] JAQUEZ [phone] PATIENT MADE AWARE, AGREE FOR THE TRANSFER
--- NOTE | 2020-03-28 17:54 | NUR ---
D/C planning Patient mother requested for patient to be placed local and had no preference. Faxed clinical information to [facility], [facility] and [facility]. Per Kaylee with [facility] Ph;([phone]) patient has been accepted to room 18b accepting MD, Dr. Nassar. Transportation has been arranged with [employer] [phone] via [email or web address] with a 22:00 cook pickled meat time. Informed ANA PAULA Neal.
--- NOTE | 2020-03-28 17:55 | NUR ---
PT HAS A SMALL HARD BM, ASSISTED TO GO BACK TO BED, AGREE TO TAKE COLACE PO
[2020-03-28] MEDS: DOCUSATE SOD 100 MG CAP PO PRN (17:57)
--- NOTE | 2020-03-28 18:00 | NUR ---
DISCHARGE WOUND PHOTO TAKEN TO THE SACRUM AREA
--- NOTE | 2020-03-28 18:19 | NUR ---
PT INFORM ME THAT HE WILL LET HIS MOM THAT HE WILL BE TRANSFER TO [facility] BY 10PM
--- NOTE | 2020-03-28 18:26 | NUR ---
CALLED [facility], SPOKE WITH KUNAL Hernandez RN, REPORT GIVEN TO HER, ALONG WITH VS AND OUR PHONE NUMBER
--- NOTE | 2020-03-28 18:34 | NUR ---
A BRIEF MESSAGE LEFT ON THE ANSWER MACHINE, ASKING PT MOM TO CALL BACK TO GIVE HER UPDATE OF THE TRANSFER
--- NOTE | 2020-03-28 18:53 | NUR ---
PT CONTINUE STABLE, CONTINUE MONITORING
--- NOTE | 2020-03-28 20:00 | NUR ---
Patient Refusing transfer to [facility] Patient states that after talking with his mother that [facility] will not be a good thing for him as they have heard bad stories. They would be willing to go to [facility] or [facility].
--- NOTE | 2020-03-28 22:30 | NUR ---
Called [facility] to cancel transportation and updated hospitalist regarding patients refusal.
[2020-03-28 22:33] VITALS: BP 101/48
[2020-03-29] MEDS: HYDROmorphone HCL 2 MG/ML VL IV PRN ×3 (03:13→11:55)
[2020-03-29 05:28] VITALS: BP 112/49
--- NOTE | 2020-03-29 07:30 | NUR ---
Opening Shift Note Assumed care of patient, awake and alert. No S/S of distress/SOB . Instructed on POC and to call for assist PRN, will continue to monitor for changes Q1hr and PRN.
[2020-03-29] MEDS: Ensure HIGH Protein Chocolate 8oz Bottle PO SCH ×2 (08:00→12:00)
[2020-03-29] MEDS: FERROUS SULFATE 325 MG TAB PO SCH (08:18)
[2020-03-29 09:00] VITALS: BP 109/59
--- NOTE | 2020-03-29 09:47 | NUR ---
Called [phone] to have tele/psych report faxed to [facility].
--- NOTE | 2020-03-29 09:53 | NUR ---
Received call from Dr. Betancourt. She was informed the patient refused to go to [facility] last night.
[2020-03-29] MEDS ORDERED: CITALOPRAM HYDROBR 20 MG TAB PO SCH (10:00)
--- NOTE | 2020-03-29 10:04 | NUR ---
Received call from patient's mother. Mother states the patient is not stable to be discharged home. She states the patient needs to go to [facility] or [facility].
--- NOTE | 2020-03-29 10:07 | NUR ---
Page placed to Dr. Betancourt.
--- NOTE | 2020-03-29 10:16 | NUR ---
Dr. Betancourt states she will speak to manager case management, Nataly. Patient will be transferred to [facility].
[2020-03-29] MEDS: FAMOTIDINE 20 MG TAB PO SCH (10:24)
[2020-03-29] MEDS: DOCUSATE SOD 100 MG CAP PO PRN (10:25)
[2020-03-29] MEDS: ASCORBIC ACID 500 MG TAB PO SCH (10:25)
[2020-03-29] MEDS ORDERED: AZITHROMYCIN 250 MG TAB PO ONE (10:30)
--- NOTE | 2020-03-29 11:01 | NUR ---
re-assessment I spoke with patient regarding his choice of SNF's. Per patient he would call me back after researching the 3 SNF's. Patient called me back and requested [facility]. [facility]. Waiting on reply back now. Addendum: 03/29/20 at 1103 by Zahraa ALMEIDA Amended: Links added.
--- NOTE | 2020-03-29 11:45 | NUR ---
Spoke with Adina at [facility]. She states the patient has been accepted and will go to Room 204 bed 2. Adina states she will set up transport and call back with ETA. duplication specialist, Ranjit, informed.
--- NOTE | 2020-03-29 12:22 | NUR ---
Nutrition Followup Notes Wt: 47.0 kg Pt`s with oral candidiasis and wounds. pt with no distress noted currently on regular neutropenic diet with ensure HP 1 carton tid. pt intake has improved po intake 80% per RN doc x 3 days. Will continue to monitor po intake. Est Energy needs: 8461-3889 kcals (30-40 kcal/kgIBW) d/t pt underweight. Est Protein needs: 77-97 gms/day (1.2-1.5 gm/kgIBW) d/t pt wounds, underweight. Will continue to monitor and reassess prn. Labs: BUN 32H, Ca 7.8L, Alb 2.3L BM: 1 03/26 per RN doc Skin: BS 15 mod risk, multiple pressure ulcers per RN WC for full details PES: 1) Increased nutrient needs r/t current/chronic medical condition aeb severe hypoalbuminemia, unhealing wounds, BMI of 16.9 kg/m2 2) Altered nutrition related lab values r/t pt with severe protein/calorie malnutrition aeb severe hypoalbuminemia, hyperchloremia, hypocalcemia Comments Will continue to closely monitor pertinent labs, PO intake and skin status prn. Will followup in 3-5 days 1) Continue to closely monitor pt PO intake to meet at least 75% of meals 2) Continue current plan of care.
[2020-03-29 12:40] VITALS: BP 126/70
--- NOTE | 2020-03-29 13:00 | NUR ---
re-assessment Per Adina at [facility] patient will be admitted to room [address] Choi is the accepting MD. [facility] to transport at 3pm. Patient and Irene GOSS notified. Patient verbalized understanding and agreed to discharge plan to [facility]. Addendum: 03/29/20 at 1552 by Zahraa ALMEIDA Amended: Links added.
--- NOTE | 2020-03-29 15:00 | NUR ---
[facility] at bedside.
--- NOTE | 2020-03-29 15:20 | NUR ---
Report given to Jeison at [facility]. Patient to go to room 203 bed 2.
--- NOTE | 2020-03-29 15:25 | NUR ---
Patient transported to [facility] via [facility].
== END 2020-03-29 15:20 | DRG 974 ==
LOC: ER 19:11 → TELE 19:12 → EEVIPCON 19:12 → TELE-E-ADS 03-16 02:31 → TELE-EAST 03-16 14:59 → EAST 03-16 21:14
PROVIDERS: ADMIT Nurse Practitioner; ATTEND Internal Medicine
DX: B20 Human immunodeficiency virus [HIV] disease (principal); E43 Unspecified severe protein-calorie malnutrition; B37.0 Candidal stomatitis; N39.0 Urinary tract infection, site not specified; Z68.1 Body mass index [BMI] 19.9 or less, adult; R65.10 Systemic inflammatory response syndrome (SIRS) of non-infectious origin without acute organ dysfunction; D70.9 Neutropenia, unspecified; R62.7 Adult failure to thrive; B96.20 Unspecified Escherichia coli [E. coli] as the cause of diseases classified elsewhere; D64.9 Anemia, unspecified; S60.221A Contusion of right hand, initial encounter; L89.159 Pressure ulcer of sacral region, unspecified stage; F17.210 Nicotine dependence, cigarettes, uncomplicated; B95.8 Unspecified staphylococcus as the cause of diseases classified elsewhere; F32.9 Major depressive disorder, single episode, unspecified; X58.XXXA Exposure to other specified factors, initial encounter; Z53.20 Procedure and treatment not carried out because of patient's decision for unspecified reasons; M54.5 Low back pain; Z20.828 Contact with and (suspected) exposure to other viral communicable diseases; Z88.1 Allergy status to other antibiotic agents; Z91.14 Patient's other noncompliance with medication regimen; Y93.89 Activity, other specified; Y92.89 Other specified places as the place of occurrence of the external cause; Y99.8 Other external cause status
CPT/HCPCS: 36415; 71045; 73120; 80048; 80053; 80320; 81001; 82040; 82140; 82607; 82728; 83540; 83550; 83605; 83615; 83735; 83880; 84443; 84484; 85007; 85025; 85027; 85045; 85379; 85610; 85730; 86038; 86141; 86360; 86880; 87040; 87070; 87077; 87081; 87086; 87088; 87186; 87804; 87880; 93005; 97110; 97163; 97530; G0378; J0696; J1447; J1956; J2543; J3490; J7060

== ENCOUNTER 2020-04-16 18:32 | Emergency (ER) | payer MEDICARE ==
[~2020-04-16] VITALS: Ht 172.7 cm; Wt 49.9 kg
[2020-04-16 19:35] LABS: Hematocrit 30.7 % (41.0-53.0); Mean Corpuscular Hemoglobin 28.6 pg (28.0-32.0); Mean Corpuscular Hgb Conc. 32.6 g/dL (32.0-36.0); Mean Corpuscular Volume 87.8 fL (80.0-100.0); Platelet Count (auto) 175 10^3/uL (140-450); White Blood Cell 5.8 10^3/uL (4.4-10.8)
[2020-04-16 19:40] LABS: Red Cell Distribution Width 20.3 % (11.8-14.3)
[2020-04-16 19:42] LABS: Basophils % (manual) 0 (0.0-2.0); Blast Cells 0; Eosinophils % (manual) 0 (0-7); Metamyelocytes % 0; Myelocytes % 0; Promyelocytes % 0; Reactive Lymphocytes 0
[2020-04-16 19:45] LABS: Alanine Aminotransferase 308 U/L (16-61); Albumin 2.6 g/dL (3.4-5.0); Anion Gap 7 (5-15); BUN/Creatinine Ratio 34.7; Blood Urea Nitrogen 26 mg/dL (7-18); Carbon Dioxide 24 mmol/L (21-32); Chloride 115 mmol/L (98-107); GFR African American 146 mL/min; GFR Non-African American 121 mL/min; Glucose 115 mg/dL (74-106); Magnesium 1.8 mg/dL (1.6-2.6); Sodium 146 mmol/L (136-145)
[2020-04-16 19:50] LABS: Lactic Acid w/Reflex 3.2 mmol/L (0.4-2.0)
[2020-04-16 19:54] LABS: Alkaline Phosphatase 421 U/L (45-117); Aspartate Aminotransferase 1153 U/L (15-37); Bilirubin, Total 0.7 mg/dL (0.2-1.0); Total Protein 7.1 g/dL (6.4-8.2)
[2020-04-16 19:57] LABS: Potassium 2.9 mmol/L (3.5-5.1)
[2020-04-16] MEDS ORDERED: POTASSIUM EFFERVESENT TAB 25 MEQ PO ONE (20:15)
[2020-04-16] MEDS ORDERED: CLINDAMYCIN 900MG IV 50 ML IV ONE (20:15)
[2020-04-16] MEDS ORDERED: PIPERACILLIN-TAZOB 3.375GM 100 ML IV ONE (20:15)
[2020-04-16 20:35] LABS: Band Neutrophils % (manual) 10; Lymphocytes % (manual) 3 (10.0-50.0); Monocytes % (manual) 6 (0-12)
[2020-04-16] MEDS ORDERED: HYDROmorphone HCL 2 MG/ML VL IV ONE (22:15)
[2020-04-16] MEDS ORDERED: ONDANSETRON HCL 4 MG/2 ML VIAL IV ONE (22:15)
[2020-04-16 22:18] LABS: Urine Bacteria NONE SEEN /hpf (None Seen); Urine Blood Negative /uL (Negative); Urine Mucus FEW (None Seen); Urine WBC 3 /hpf (0 - 3)
[2020-04-17] MEDS ORDERED: SODIUM CHLORIDE 0.9% 1,000 ML IV ONE (01:30)
[2020-04-17 04:00] VITALS: BP 104/64
== END 2020-04-17 05:03 | disposition home or self-care (01) ==
LOC: ER 18:32 → EDBD 18:32 → ER 04-17 05:03
DX: E87.6 Hypokalemia (principal); L89.90 Pressure ulcer of unspecified site, unspecified stage; L08.9 Local infection of the skin and subcutaneous tissue, unspecified; R62.7 Adult failure to thrive; R53.1 Weakness; F17.210 Nicotine dependence, cigarettes, uncomplicated
CPT/HCPCS: 36415; 71045; 72192; 80053; 81001; 83605; 83735; 84484; 85007; 85027; 87040; 96365; 96366; 96367; 96375; 99285; J1170; J2405; J2543; J3490

== ENCOUNTER 2020-05-31 17:59 | Emergency (ER) | payer MEDICARE ==
[~2020-05-31] VITALS: Ht 167.6 cm; Wt 45.4 kg
[2020-05-31 19:54] VITALS: BP 117/61
[2020-05-31] MEDS ORDERED: ACETAMINOPHEN 325 MG TAB PO ONE (20:00)
[2020-05-31 20:05] LABS: Anion Gap 5 (5-15); Blood Urea Nitrogen 26 mg/dL (7-18); Calcium 7.4 mg/dL (8.5-10.1); Carbon Dioxide 25 mmol/L (21-32); Chloride 111 mmol/L (98-107); Glucose 115 mg/dL (74-106); Potassium 3.3 mmol/L (3.5-5.1); Sodium 141 mmol/L (136-145)
[2020-05-31 20:08] LABS: Alanine Aminotransferase 73 U/L (16-61); Alkaline Phosphatase 245 U/L (45-117); Aspartate Aminotransferase 69 U/L (15-37); BUN/Creatinine Ratio 41.3; Bilirubin, Total 0.2 mg/dL (0.2-1.0); GFR African American 178 mL/min; GFR Non-African American 147 mL/min; Total Protein 6.2 g/dL (6.4-8.2)
[2020-05-31 20:13] LABS: Basophils # (auto) 0 10 ^3/uL (0-0.2); Eosinophils # (auto) 0 10 ^3/uL (0-0.8); Lymphocytes # (auto) 0.5 10 ^3/uL (0.4-5.4); Monocytes # (auto) 0.2 10 ^3/uL (0-1.3); Neutrophils # (auto) 1.8 10 ^3/uL (1.6-8.6); Red Blood Cells 2.76 10^6/uL (4.5-5.90); White Blood Cell 2.5 10^3/uL (4.4-10.8)
[2020-05-31 20:15] LABS: Basophils % (auto) 0.7 % (0.0-2.0); Eosinophils % (auto) 0.5 % (0.0-7.0); Hemoglobin 7.4 g/dL (13.5-17.5); Lymphocytes % (auto) 19.9 % (10.0-50.0); Mean Corpuscular Hemoglobin 26.9 pg (28.0-32.0); Mean Corpuscular Hgb Conc. 32.3 g/dL (32.0-36.0); Mean Corpuscular Volume 83.4 fL (80.0-100.0); Monocytes % (auto) 7.8 % (0.0-12.0); Neutrophils % (auto) 71.1 % (37.0-80.0); Nucleated Red Blood Cells % 0.1 %; Platelet Count (auto) 96 10^3/uL (140-450); Red Cell Distribution Width 19.3 % (11.8-14.3)
[2020-05-31 23:50] LABS: INR 0.97 (0.9-1.15); Partial Thromboplastin Time 27.4 sec (23.0-31.2)
== END 2020-05-31 20:17 | disposition short-term general hospital (02) ==
LOC: ER 17:59 → EDBD 17:59 → ER 20:17
DX: S06.5X9A Traumatic subdural hemorrhage with loss of consciousness of unspecified duration, initial encounter (principal); F17.210 Nicotine dependence, cigarettes, uncomplicated; F12.10 Cannabis abuse, uncomplicated; I10 Essential (primary) hypertension; X58.XXXA Exposure to other specified factors, initial encounter; Y93.89 Activity, other specified; Y92.89 Other specified places as the place of occurrence of the external cause; Y99.8 Other external cause status
CPT/HCPCS: 36415; 70450; 80053; 84484; 85025; 85610; 85730; 99291

== ENCOUNTER 2020-06-19 22:32 | Emergency (ER) | payer MEDICARE ==
[2020-06-19] MEDS ORDERED: KETOROLAC TROMETH 30 MG/ML 1ML VIAL ONE (23:59)
[2020-06-19] MEDS ORDERED: HYDROmorphone HCL 2 MG/ML VL ONE (23:59)
== END 2020-06-20 05:37 | disposition left against medical advice (07) ==
LOC: ER 22:32 → EDBD 22:32 → ER 06-20 05:37
DX: M79.10 Myalgia, unspecified site (principal); Z53.21 Procedure and treatment not carried out due to patient leaving prior to being seen by health care provider
CPT/HCPCS: J1170; J1885

== ENCOUNTER → 2020-07-02 | Emergency (ER) | payer MEDICARE ==
[~2020-07-02] VITALS: Ht 167.6 cm; Wt 41.7 kg
[~2020-07-02] MED LIST: CYANOCOBALAMIN (B-12) 1000 MCG/1 ML VIAL IM ONE; HYDROcodone-ACET 5/325MG TAB PO ONE; SODIUM CHLORIDE 0.9% 1,000 ML IV ONE
[2020-07-02 14:46] LABS: Basophils # (auto) 0 10 ^3/uL (0-0.2); Basophils % (auto) 1.1 % (0.0-2.0); Eosinophils # (auto) 0.1 10 ^3/uL (0-0.8); Hematocrit 29.4 % (41.0-53.0); Hemoglobin 9.3 g/dL (13.5-17.5); Lymphocytes # (auto) 0.5 10 ^3/uL (0.4-5.4); Lymphocytes % (auto) 19.6 % (10.0-50.0); Mean Corpuscular Hemoglobin 29.3 pg (28.0-32.0); Mean Corpuscular Hgb Conc. 31.7 g/dL (32.0-36.0); Mean Corpuscular Volume 92.5 fL (80.0-100.0); Monocytes # (auto) 0.3 10 ^3/uL (0-1.3); Monocytes % (auto) 9.4 % (0.0-12.0); Neutrophils # (auto) 1.8 10 ^3/uL (1.6-8.6); Neutrophils % (auto) 67.9 % (37.0-80.0); Nucleated Red Blood Cells % 0.1 %; Platelet Count (auto) 258 10^3/uL (140-450); Red Blood Cells 3.18 10^6/uL (4.5-5.90); Red Cell Distribution Width 20.2 % (11.8-14.3); White Blood Cell 2.7 10^3/uL (4.4-10.8)
[2020-07-02 15:09] LABS: Albumin 3.2 g/dL (3.4-5.0); Calcium 8.4 mg/dL (8.5-10.1); Magnesium 2.2 mg/dL (1.6-2.6); Potassium 3.9 mmol/L (3.5-5.1)
[2020-07-02 15:12] LABS: BUN/Creatinine Ratio 38.8; Bilirubin, Total 0.2 mg/dL (0.2-1.0); Total Protein 7.5 g/dL (6.4-8.2)
[2020-07-02 15:24] LABS: Urine Bacteria NONE SEEN /hpf (None Seen); Urine Blood 1+ /uL (Negative); Urine Mucus FEW (None Seen); Urine Specific Gravity 1.023 (1.001-1.035); Urine WBC <1 /hpf (0 - 3)
[2020-07-02 16:19] VITALS: BP 145/75
== END | disposition home or self-care (01) ==
LOC: ER 13:19
DX: G96.0 Cerebrospinal fluid leak (principal); D64.9 Anemia, unspecified; G43.909 Migraine, unspecified, not intractable, without status migrainosus; B20 Human immunodeficiency virus [HIV] disease; F41.9 Anxiety disorder, unspecified; F17.210 Nicotine dependence, cigarettes, uncomplicated; I10 Essential (primary) hypertension; F15.10 Other stimulant abuse, uncomplicated; F12.10 Cannabis abuse, uncomplicated
CPT/HCPCS: 36415; 70450; 71046; 80053; 81001; 83735; 84443; 85025; 93005; 96360; 96361; 96372; 99285; J3420; J7030

== ENCOUNTER → 2020-07-08 | Emergency (ER) | payer MEDICARE ==
[~2020-07-08] VITALS: Ht 167.6 cm; Wt 43.5 kg
[2020-07-08 19:57] LABS: Basophils # (auto) 0 10 ^3/uL (0-0.2); Basophils % (auto) 1.4 % (0.0-2.0); Eosinophils # (auto) 0.1 10 ^3/uL (0-0.8); Hematocrit 31.3 % (41.0-53.0); Hemoglobin 10.1 g/dL (13.5-17.5); Lymphocytes # (auto) 0.7 10 ^3/uL (0.4-5.4); Lymphocytes % (auto) 23.2 % (10.0-50.0); Mean Corpuscular Hemoglobin 30.1 pg (28.0-32.0); Mean Corpuscular Hgb Conc. 32.4 g/dL (32.0-36.0); Monocytes # (auto) 0.3 10 ^3/uL (0-1.3); Monocytes % (auto) 11.8 % (0.0-12.0); Neutrophils # (auto) 1.7 10 ^3/uL (1.6-8.6); Neutrophils % (auto) 60.6 % (37.0-80.0); Platelet Count (auto) 253 10^3/uL (140-450); Red Blood Cells 3.36 10^6/uL (4.5-5.90); Red Cell Distribution Width 18.3 % (11.8-14.3); White Blood Cell 2.8 10^3/uL (4.4-10.8)
[2020-07-08 20:19] LABS: Albumin 3.4 g/dL (3.4-5.0); Anion Gap 5 (5-15); Blood Urea Nitrogen 30 mg/dL (7-18); Calcium 8.8 mg/dL (8.5-10.1); Carbon Dioxide 25 mmol/L (21-32); Chloride 108 mmol/L (98-107); Glucose 82 mg/dL (74-106); INR 0.95 (0.9-1.15); Partial Thromboplastin Time 25.6 sec (23.0-31.2); Potassium 4.2 mmol/L (3.5-5.1); Sodium 138 mmol/L (136-145)
[2020-07-08 20:26] LABS: Alanine Aminotransferase 18 U/L (16-61); Alkaline Phosphatase 92 U/L (45-117); Aspartate Aminotransferase 12 U/L (15-37); BUN/Creatinine Ratio 35.3; Bilirubin, Total 0.2 mg/dL (0.2-1.0); GFR African American 126 mL/min; GFR Non-African American 104 mL/min; Total Protein 7.9 g/dL (6.4-8.2)
[2020-07-08 23:31] VITALS: BP 126/79
== END | disposition home or self-care (01) ==
LOC: ER 19:24 → EDUNIT# 19:24 → EDBD 19:24
DX: R07.89 Other chest pain (principal); F17.210 Nicotine dependence, cigarettes, uncomplicated; I10 Essential (primary) hypertension
CPT/HCPCS: 36415; 71045; 80053; 83880; 84484; 85025; 85610; 85730; 93005

== ENCOUNTER 2021-05-27 11:55 | Emergency (ER) | payer MEDICARE, MEDICAID ==
[~2021-05-27] VITALS: Ht 167.6 cm; Wt 65.8 kg
[2021-05-27 12:13] VITALS: BP 121/74
== END 2021-05-28 01:01 | disposition home or self-care (01) ==
LOC: ER 11:55
DX: R07.89 Other chest pain (principal); F17.210 Nicotine dependence, cigarettes, uncomplicated; M25.511 Pain in right shoulder; I10 Essential (primary) hypertension
CPT/HCPCS: 71101

== ENCOUNTER 2021-05-28 08:19 | Emergency (ER) | payer MEDICAID, MEDICARE ==
[~2021-05-28] VITALS: Ht 167.6 cm; Wt 66.7 kg
[2021-05-28 09:01] VITALS: BP 112/56
== END 2021-05-28 09:11 | disposition home or self-care (01) ==
LOC: ER 08:19
DX: R07.89 Other chest pain (principal); I10 Essential (primary) hypertension; F17.210 Nicotine dependence, cigarettes, uncomplicated; Z88.8 Allergy status to other drugs, medicaments and biological substances
CPT/HCPCS: 71046